=== PATIENT | female | born 1935 | race Caucasian/White ===

== ENCOUNTER → 2017-08-05 10:25 | Outpatient (CLI) | payer MEDICARE, OTHER, SELFPAY | PROVIDERS: Family Provider Family Medicine; PCP Family Medicine; Visit Provider Family Medicine | DX: M81.0 Age-related osteoporosis without current pathological fracture (principal); Z78.0 Asymptomatic menopausal state; Z82.62 Family history of osteoporosis; Z87.891 Personal history of nicotine dependence | CPT/HCPCS: 77080 ==

== ENCOUNTER → 2017-08-29 07:28 | Outpatient (CLI) | payer MEDICARE, OTHER, SELFPAY ==
[2017-08-29 08:16] LABS: Add Manual Diff / Slide Review NO; Basophils Percent Auto 0.7 % (0-2); Eosinophils Percent Auto 9.2 % (2-4); Hematocrit 37.7 % (36-46); Hemoglobin 12.7 g/dL (12.0-16.0); Lymphocytes Percent Auto 31.3 % (25-40); Mean Corpuscular HGB Conc 33.8 % (30-36); Mean Corpuscular Hemoglobin 31.6 PG (26-34); Mean Corpuscular Volume 93.7 fL (80-100); Monocytes Percent Auto 12.5 % (3-14); Neutrophils Absolute Auto 2200 /uL (3000-5900); Neutrophils Percent Auto 46.3 % (50-75); Platelet Count 210 X10^3/uL (150-400); Red Blood Cell Count 4.03 X10^6/uL (4.0-5.2); Red Cell Distribution Width 13.6 % (11.6-14.8); White Blood Cell Count 4.8 X10^3/uL (4.5-11.0)
[2017-08-29 08:57] LABS: Alanine Aminotransferase 26 IU/L (9-52); Albumin Globulin Ratio 0.7 (1.0-2.8); Alkaline Phosphatase 125 U/L (38-126); Aspartate Aminotransferase 25 IU/L (14-36); Bilirubin Total 0.6 mg/dL (0.2-1.3); Blood Urea Nitrogen 12 mg/dL (7-17); Carbon Dioxide 26 mmol/L (22-32); Chloride 107 mmol/L (98-107); Cholesterol 201 mg/dL (140-199); Estimated Glomerular Filt Rate > 60.0 mL/min (>60); Globulin 5.4 g/dL (1.7-4.1); Glucose 90 mg/dL (80-110); HDL Cholesterol 51 mg/dL (40-60); HEMOLYSIS < 15 (0-50); LDL Cholesterol Calculated 127 mg/dL (<100); Potassium 4.5 mmol/L (3.4-5.1); Sodium 141 mmol/L (137-145); Total Protein 9.4 g/dL (6.3-8.2); Triglycerides 117 mg/dL (35-150)
[2017-08-29 09:28] LABS: TSH w/ Reflex to FT4 1.17 uIU/mL (0.47-4.68)
== END ==
PROVIDERS: PCP Family Medicine; Visit Provider Family Medicine
DX: E78.5 Hyperlipidemia, unspecified (principal); E78.2 Mixed hyperlipidemia
CPT/HCPCS: 36415; 80053; 80061; 84443; 85025

== ENCOUNTER 2018-07-07 10:58 | Emergency (ER) | payer MEDICARE, SELFPAY ==
[2018-07-07 11:00] VITALS: BP 144/73; PULSE 62; RESP 18; TEMP 36.3; O2SAT 100
--- NOTE | 2018-07-07 11:16 | DI.CT.S_ITS ---
PROCEDURE: CT HEAD/BRAIN WO CON INDICATIONS: fall with head injury on coumadin TECHNIQUE: Noncontrast 4.5 mm thick angled axial sections acquired from the foramen magnum to the vertex, with coronal and sagittal reformats. For radiation dose reduction, the following was used: automated exposure control, adjustment of mA and/or kV according to patient size. COMPARISON: [facility], CT, HEAD WITHOUT CONTRAST, 12/05/2008, 17:57. FINDINGS: Image quality: Excellent. CSF spaces: Basal cisterns are patent. No extra-axial fluid collections. The ventricles are symmetric in size and shape. Brain: No intracranial bleeds or masses. There is cerebral volume loss for age, with resultant ventricular and sulcal prominence. There are periventricular and deep white matter chronic small vessel ischemic changes. There is intracranial internal carotid artery atherosclerosis. Skull and face: Calvarium and visualized facial bones appear intact, without suspicious lesions. Sinuses: Mild mucosal thickening within the bilateral maxillary sinuses. Visualized sinuses and mastoids are otherwise clear. IMPRESSION: No acute intracranial abnormality. Dictated by: Kristine Hayes M.D. on 07/07/2018 at 11:40 Approved by: Kristine Hayes M.D. on 07/07/2018 at 11:41
[2018-07-07 11:26] LABS: Hematocrit 37.4 % (36-46); Hemoglobin 12.2 g/dL (12.0-16.0)
[2018-07-07 11:31] LABS: INR 1.4 (0.9-1.3); Prothrombin Time 16.4 SECONDS (10.1-12.7)
--- NOTE | 2018-07-07 11:45 | PC.NURSE ---
large head laceration from falling into stone wall. will need sutures.
--- NOTE | 2018-07-07 11:51 | ED.HEATRA ---
HPI - Head Injury General Chief complaint: Trauma Stated complaint: SLIPPED AND FELL HIT HEAD Time Seen by Provider: 07/07/18 11:06 Source: patient and EMS Mode of arrival: EMS Limitations: no limitations History of Present Illness HPI Narrative: 82-year-old female nonsmoker presents with EMS for evaluation of a mechanical fall resulting in a head injury while on anticoagulation. The patient was activated as a modified trauma given anticoagulation and head injury. She has a large, deep irregular laceration on the right side of her head. She denies neck or back pain. She has full recall of the event and denies other injury other than superficial abrasions to left hand and right knee. MD Complaint: head injury Onset (ago): minute(s) Mechanism of Injury: fall Place: home Loss of Consciousness: no Location of injury: parietal Severity: mild Quality: burning Radiation: none Other Injuries: none Context: on warfarin Associated symptoms: denies other symptoms Related Data Home Medications Medication Instructions Recorded Confirmed multivitamin 1 tab PO DAILY #0 05/30/12 07/07/18 citalopram 20 mg PO QPM 07/07/18 07/07/18 warfarin 7.5 mg PO QPM 07/07/18 07/07/18 Previous Rx's Medication Instructions Recorded ipratropium bromide 0.03 % nasal 2 spray NASAL BID-TID PRN #30 ml 09/07/17 spray Allergies Allergy/AdvReac Type Severity Reaction Status Date / Time No Known Drug Allergies Allergy Verified 12/28/17 09:13 Review of Systems Constitutional Denies chills, Denies fever(s), Denies lethargy and Denies weakness Eyes Denies change in vision, Denies eye discharge, Denies irritation and Denies loss of vision ENT Ears, Nose, Mouth, and Throat: Denies change in voice, Denies neck pain and Denies sore throat Cardiovascular Denies chest pain, Denies irregular heart rhythm, Denies lightheadedness, Denies palpitations, Denies dyspnea, Denies dyspnea on exertion and Denies orthopnea Respiratory Denies cough, Denies dyspnea, Denies dyspnea on exertion and Denies wheezing Gastrointestinal Gastrointestinal: Denies abdominal pain, Denies change in bowel habits, Denies diarrhea, Denies nausea and Denies vomiting Genitourinary Denies hematuria, Denies flank pain, Denies urinary incontinence and Denies urinary urgency Musculoskeletal Denies neck pain Integumentary/Breasts Denies pruritus, Denies erythema, Denies rash and Reports wounds Neurologic Denies confusion, Denies loss of vision and Denies weakness Psychiatric Denies anxiety, Denies confusion, Denies depression, Denies homicidal ideation and Denies suicidal ideation Endocrine Denies palpitations Hematologic/Lymphatic Denies easy bruising Allergic/Immunologic Denies wheezing [facility] Medical History Acne (Chronic) Ankle pain (Chronic ~1999) Cervical spine disease (Chronic ~2012) Depression (Chronic ~1998) MGUS (monoclonal gammopathy of unknown significance) (Chronic) Osteoarthritis (Chronic ~1999) Osteoporosis (Chronic ~1998) Shoulder pain (Chronic ~1984) Chicken pox (Resolved) Measles (Resolved) Mumps (Resolved) Rubella (Resolved) Surgical History Anesthesia (Resolved) History of ankle surgery (Resolved ~2006) S/P total abdominal hysterectomy and bilateral salpingo-oophorectomy Status post rotator cuff repair (~2004) Family History Father Disorder of electrolytes Mother Mental health problem Grandfather Cancer Grandmother Diabetes mellitus Social History marital status: Smoking Status: Former smoker alcohol intake: current (1-2 A DAY ) substance use type: does not use Family History Father Disorder of electrolytes Mother Mental health problem Grandfather Cancer Grandmother Diabetes mellitus Social History marital status: Smoking Status: Former smoker alcohol intake: current (1-2 A DAY ) substance use type: does not use Exam Narrative Exam Narrative: GENERAL: 82-year-old female appears younger than stated age, alert and oriented, GCS 15 HEAD: 4 cm irregular laceration to the right parietal region with minimal active bleeding. No signs of depressed skull fracture EYES: Pupils equal round and reactive. Extraocular motions intact. No scleral icterus. No injection or drainage. ENT: Nose without bleeding, purulent drainage or septal hematoma. Throat without erythema, tonsillar hypertrophy or exudate. Uvula midline. Airway patent. NECK: Trachea midline. No JVD or lymphadenopathy. Supple, nontender, no meningeal signs. CARDIOVASCULAR: Regular rate and rhythm without murmurs, gallops, or rubs. RESPIRATORY: Clear to auscultation. Breath sounds equal bilaterally. No wheezes, rales, or rhonchi. GASTROINTESTINAL: Abdomen soft, non-tender, nondistended. No hepato-splenomegaly, or palpable masses. No guarding. EXTREMITIES: No clubbing, cyanosis, or edema. No joint tenderness, effusion, or edema noted. BACK: Nontender without deformity or crepitance. No flank tenderness. NEURO: AOx3. SKIN: No rash or erythema. Initial Vital Signs Initial Vital Signs: Vital Signs Temperature 97.4 F L 07/07/18 11:00 Pulse Rate 62 07/07/18 11:00 Respiratory Rate 18 07/07/18 11:00 Blood Pressure 144/73 H 07/07/18 11:00 Pulse Oximetry 100 07/07/18 11:00 Procedures Laceration Repair Laceration 1: Site: scalp Side (If applicable): right Size (cm): 4 Description: stellate Depth: involves muscle layer Local Anesthetic: lidocaine 1% and with epi Amount of anesthesia used (mL): 4 Pre-repair: wound explored and irrigated extensively Skin layer closed with: jewels Number of sutures: 8 Subcutaneous layer closed with: vicryl Size: 4-0 Number of sutures: 2 Technique: simple, interrupted Course Orders Ordered: ED Orders 07/07/18 11:14 Hemoglobin and Hematocrit Stat Prothrombin Time INR Stat 07/07/18 11:16 CT head/brain wo con Stat Vital Signs - 8 hr 07/07/18 13:00 Pulse Rate 77 Respiratory Rate 20 Blood Pressure 128/63 Pulse Oximetry 96 MDM - Head Injury Lab Data Result diagrams: 07/07/18 11:14 Lab Results 07/07/18 07/07/18 Range/Units 11:14 11:14 Hgb 12.2 (12.0-16.0) g/dL Hct 37.4 (36-46) % PT 16.4 H (10.1-12.7) SECONDS INR 1.4 H (0.9-1.3) Imaging Data CT scan - head: Radiologist's impression: Linda Benavides 82 F [address] [address] [address] Scan Report Signed Patient: Linda Benavides [facility]#: [id number] : [id number]:[id number] Age/Sex: 82 / FDate of Service: 07/07/18 Loc: ED Accession Number: [id number] Procedure: CT head/brain wo con Ordering Provider: Stanton Eden D.O. PROCEDURE: CT HEAD/BRAIN WO CON INDICATIONS: fall with head injury on coumadin TECHNIQUE: Noncontrast 4.5 mm thick angled axial sections acquired from the foramen magnum to the vertex, with coronal and sagittal reformats. For radiation dose reduction, the following was used: automated exposure control, adjustment of mA and/or kV according to patient size. COMPARISON: [facility], CT, HEAD WITHOUT CONTRAST, 12/05/2008, 17:57. FINDINGS: Image quality: Excellent. CSF spaces: Basal cisterns are patent. No extra-axial fluid collections. The ventricles are symmetric in size and shape. Brain: No intracranial bleeds or masses. There is cerebral volume loss for age, with resultant ventricular and sulcal prominence. There are periventricular and deep white matter chronic small vessel ischemic changes. There is intracranial internal carotid artery atherosclerosis. Skull and face: Calvarium and visualized facial bones appear intact, without suspicious lesions. Sinuses: Mild mucosal thickening within the bilateral maxillary sinuses. Visualized sinuses and mastoids are otherwise clear. IMPRESSION: No acute intracranial abnormality. Dictated by: Kristine Hayes M.D. on 07/07/2018 at 11:40 Approved by: Kristine Hayes M.D. on 07/07/2018 at 11:41 Discharge Plan Departure Patient Disposition: Home Clinical Impression: Laceration of scalp Qualifiers: Encounter type: initial encounter Qualified Code(s): S01.01XA - Laceration without foreign body of scalp, initial encounter Discharge Date/Time: 07/07/18 13:00 Interventions: ED Discharge Assessment Last Done: 07/07/18 13:00 Instructions: DI for Trauma Activity Restrictions/Additional Instructions: Please keep the wound clean and dry to the best of your ability. Please monitor for signs of infection such as redness to the skin or increasing pain. Have the sutures removed by your doctor in about 7 days. If you are unable to get into your doctor, we would be happy to remove the sutures in that same timeframe. Prescriptions: No Action multivitamin Tablet 1 tab PO DAILY Qty: 0 RF: 0 ipratropium bromide 0.03 % spray,non-aerosol 2 spray NASAL BID-TID PRN (Reason: allergy symptoms) Qty: 30 RF: 1 warfarin 5 mg tablet 7.5 mg PO QPM RF: 0 citalopram 20 mg tablet 20 mg PO QPM RF: 0 Referrals: Andre Maradiaga MD [Primary Care Provider] -
[2018-07-07 13:00] VITALS: BP 128/63; PULSE 77; RESP 20; O2SAT 96
--- NOTE | 2018-07-07 15:18 | PC.NURSE ---
pt's right knee cleansed. Bacitracin applied and kerlix applied. skin tear
--- NOTE | 2018-07-07 19:19 | ED_ITS ---
HPI - Head Injury General Chief complaint: Trauma Stated complaint: SLIPPED AND FELL HIT HEAD Time Seen by Provider: 07/07/18 11:06 Source: patient and EMS Mode of arrival: EMS Limitations: no limitations History of Present Illness HPI Narrative: 82-year-old female nonsmoker presents with EMS for evaluation of a mechanical fall resulting in a head injury while on anticoagulation. The patient was activated as a modified trauma given anticoagulation and head injury. She has a large, deep irregular laceration on the right side of her head. She denies neck or back pain. She has full recall of the event and den ies other injury other than superficial abrasions to left hand and right knee. MD Complaint: head injury Onset (ago): minute(s) Mechanism of Injury: fall Place: home Loss of Consciousness: no Location of injury: parietal Severity: mild Quality: burning Radiation: none Other Injuries: none Context: on warfarin Associated symptoms: denies other symptoms Related Data Home Medications Medication Instructions Recorded Confirmed multivitamin 1 tab PO DAILY #0 05/30/12 07/07/18 citalopram 20 mg PO QPM 07/07/18 07/07/18 warfarin 7.5 mg PO QPM 07/07/18 07/07/18 Previous Rx's Medication Instructions Recorded ipratropium bromide 0.03 % nasal 2 spray NASAL BID-TID PRN #30 ml 09/07/17 spray Allergies Allergy/AdvReac Type Severity Reaction Status Date / Time No Known Drug Allergies Allergy Verified 12/28/17 09:13 Review of Systems Constitutional Denies chills, Denies fever(s), Denies lethargy and Denies weakness Eyes Denies change in vision, Denies eye discharge, Denies irritation and Denies loss of vision ENT Ears, Nose, Mouth, and Throat: Denies change in voice, Denies neck pain and Denies sore throat Cardiovascular Denies chest pain, Denies irregular heart rhythm, Denies lightheadedness, Denies palpitations, Denies dyspnea, Denies dyspnea on exertion and Denies orthopnea Respiratory Denies cough, Denies dyspnea, Denies dyspnea on exertion and Denies wheezing Gastrointestinal Gastrointestinal: Denies abdominal pain, Denies change in bowel habits, Denies diarrhea, Denies nausea and Denies vomiting Genitourinary Denies hematuria, Denies flank pain, Denies urinary incontinence and Denies urinary urgency Musculoskeletal Denies neck pain Integumentary/Breasts Denies pruritus, Denies erythema, Denies rash and Reports wounds Neurologic Denies confusion, Denies loss of vision and Denies weakness Psychiatric Denies anxiety, Denies confusion, Denies depression, Denies homicidal ideation and Denies suicidal ideation Endocrine Denies palpitations Hematologic/Lymphatic Denies easy bruising Allergic/Immunologic Denies wheezing [facility] Medical History Acne (Chronic) Ankle pain (Chronic ~1999) Cervical spine disease (Chronic ~2012) Depression (Chronic ~1998) MGUS (monoclonal gammopathy of unknown significance) (Chronic) Osteoarthritis (Chronic ~1999) Osteoporosis (Chronic ~1998) Shoulder pain (Chronic ~1984) Chicken pox (Resolved) Measles (Resolved) Mumps (Resolved) Rubella (Resolved) Surgical History Anesthesia (Resolved) History of ankle surgery (Resolved ~2006) S/P total abdominal hysterectomy and bilateral salpingo-oophorectomy Status post rotator cuff repair (~2004) Family History Father Disorder of electrolytes Mother Mental health problem Grandfather Cancer Grandmother Diabetes mellitus Social History marital status: Smoking Status: Former smoker alcohol intake: current (1-2 A DAY ) substance use type: does not use Family History Father Disorder of electrolytes Mother Mental health problem Grandfather Cancer Grandmother Diabetes mellitus Social History marital status: Smoking Status: Former smoker alcohol intake: current (1-2 A DAY ) substance use type: does not use Exam Narrative Exam Narrative: GENERAL: 82-year-old female appears younger than stated age, alert and oriented, GCS 15 HEAD: 4 cm irregular laceration to the right parietal region with minimal active bleeding. No signs of depressed skull fracture EYES: Pupils equal round and reactive. Extraocular motions intact. No scleral icterus. No injection or drainage. ENT: Nose without bleeding, purulent drainage or septal hematoma. Throat without erythema, tonsillar hypertrophy or exudate. Uvula midline. Airway patent. NECK: Trachea midline. No JVD or lymphadenopathy. Supple, nontender, no meningeal signs. CARDIOVASCULAR: Regular rate and rhythm without murmurs, gallops, or rubs. RESPIRATORY: Clear to auscultation. Breath sounds equal bilaterally. No wheezes, rales, or rhonchi. GASTROINTESTINAL: Abdomen soft, non-tender, nondistended. No hepato- splenomegaly, or palpable masses. No guarding. EXTREMITIES: No clubbing, cyanosis, or edema. No joint tenderness, effusion, or edema noted. BACK: Nontender without deformity or crepitance. No flank tenderness. NEURO: AOx3. SKIN: No rash or erythema. Initial Vital Signs Initial Vital Signs: Vital Signs Temperature 97.4 F L 07/07/18 11:00 Pulse Rate 62 07/07/18 11:00 Respiratory Rate 18 07/07/18 11:00 Blood Pressure 144/73 H 07/07/18 11:00 Pulse Oximetry 100 07/07/18 11:00 Procedures Laceration Repair Laceration 1: Site: scalp Side (If applicable): right Size (cm): 4 Description: stellate Depth: involves muscle layer Local Anesthetic: lidocaine 1% and with epi Amount of anesthesia used (mL): 4 Pre-repair: wound explored and irrigated extensively Skin layer closed with: jewels Number of sutures: 8 Subcutaneous layer closed with: vicryl Size: 4-0 Number of sutures: 2 Technique: simple, interrupted Course Orders Ordered: ED Orders 07/07/18 11:14 Hemoglobin and Hematocrit Stat Prothrombin Time INR Stat 07/07/18 11:16 CT head/brain wo con Stat Vital Signs - 8 hr 07/07/18 13:00 Pulse Rate 77 Respiratory Rate 20 Blood Pressure 128/63 Pulse Oximetry 96 MDM - Head Injury Lab Data Result diagrams: 07/07/18 11:14 Lab Results 07/07/18 07/07/18 Range/Units 11:14 11:14 Hgb 12.2 (12.0-16.0) g/dL Hct 37.4 (36-46) % PT 16.4 H (10.1-12.7) SECONDS INR 1.4 H (0.9-1.3) Imaging Data CT scan - head: Radiologist's impression: Linda Benavides 82 F [address] [address] [address] Scan Report Signed Patient: Linda Benavides [facility]#: [id number] : 1935cct:[id number] Age/Sex: 82 / FDate of Service: 07/07/18 Loc: ED Accession Number: [id number] Procedure: CT head/brain wo con Ordering Provider: Stanton Eden D.O. PROCEDURE: CT HEAD/BRAIN WO CON INDICATIONS: fall with head injury on coumadin TECHNIQUE: Noncontrast 4.5 mm thick angled axial sections acquired from the foramen magnum to the vertex, with coronal and sagittal reformats. For radiation dose reduction, the following was used: automated exposure control, adjustment of mA and/or kV according to patient size. COMPARISON: [facility], CT, HEAD WITHOUT CONTRAST, 12/05/2008, 17:57. FINDINGS: Image quality: Excellent. CSF spaces: Basal cisterns are patent. No extra-axial fluid collections. The ventricles are symmetric in size and shape. Brain: No intracranial bleeds or masses. There is cerebral volume loss for age, with resultant ventricular and sulcal prominence. There are periventricular and deep white matter chronic small vessel ischemic changes. There is intracranial internal carotid artery atherosclerosis. Skull and face: Calvarium and visualized facial bones appear intact, without suspicious lesions. Sinuses: Mild mucosal thickening within the bilateral maxillary sinuses. Visualized sinuses and mastoids are otherwise clear. IMPRESSION: No acute intracranial abnormality. Dictated by: Kristine Hayes M.D. on 07/07/2018 at 11:40 Approved by: Kristine Hayes M.D. on 07/07/2018 at 11:41 Discharge Plan Departure Patient Disposition: Home Clinical Impression: Laceration of scalp Qualifiers: Encounter type: initial encounter Qualified Code(s): S01.01XA - Laceration without foreign body of scalp, initial encounter Discharge Date/Time: 07/07/18 13:00 Interventions: ED Discharge Assessment Last Done: 07/07/18 13:00 Instructions: DI for Trauma Activity Restrictions/Additional Instructions: Please keep the wound clean and dry to the best of your ability. Please monitor for signs of infection such as redness to the skin or increasing pain. Have the sutures removed by your doctor in about 7 days. If you are unable to get into your doctor, we would be happy to remove the sutures in that same timeframe. Prescriptions: No Action multivitamin Tablet 1 tab PO DAILY Qty: 0 RF: 0 ipratropium bromide 0.03 % spray,non-aerosol 2 spray NASAL BID-TID PRN (Reason: allergy symptoms) Qty: 30 RF: 1 warfarin 5 mg tablet 7.5 mg PO QPM RF: 0 citalopram 20 mg tablet 20 mg PO QPM RF: 0 Referrals: Andre Maradiaga MD [Primary Care Provider] -
== END 2018-07-07 13:00 | disposition home or self-care (01) ==
PROVIDERS: Emergency Provider Emergency Medicine; Family Provider Family Medicine; PCP Family Medicine
DX: S01.01XA Laceration without foreign body of scalp, initial encounter (principal); W19.XXXA Unspecified fall, initial encounter; Z79.01 Long term (current) use of anticoagulants
CPT/HCPCS: 12032; 36415; 70450; 85014; 85018; 85610; 99283; 99284

== ENCOUNTER → 2018-08-01 07:53 | Outpatient (CLI) | payer MEDICARE, SELFPAY ==
[2018-08-01 08:53] LABS: Add Manual Diff / Slide Review NO; Basophils Absolute Auto 0 /uL (0-100); Basophils Percent Auto 0.7 % (0-2); Eosinophils Absolute Auto 300 /uL (0-450); Eosinophils Percent Auto 6.9 % (2-4); Hematocrit 37.2 % (36-46); Hemoglobin 12.5 g/dL (12.0-16.0); Lymphocytes Absolute Auto 1000 /uL (1100-4500); Lymphocytes Percent Auto 24.3 % (25-40); Mean Corpuscular HGB Conc 33.7 % (30-36); Mean Corpuscular Hemoglobin 31.9 PG (26-34); Mean Corpuscular Volume 94.6 fL (80-100); Monocytes Absolute Auto 400 /uL (0-900); Monocytes Percent Auto 11.2 % (3-14); Neutrophils Absolute Auto 2300 /uL (1500-7000); Neutrophils Percent Auto 56.9 % (50-75); Platelet Count 223 X10^3/uL (150-400); Red Blood Cell Count 3.93 X10^6/uL (4.0-5.2); Red Cell Distribution Width 13.7 % (11.6-14.8)
[2018-08-01 09:07] LABS: Cholesterol 190 mg/dL (140-199); HDL Cholesterol 48 mg/dL (40-60); LDL Cholesterol Calculated 121 mg/dL (<100); Triglycerides 105 mg/dL (35-150)
[2018-08-01 09:09] LABS: Erythrocyte Sedimentation Rate 30 MM/HR (0-20)
[2018-08-01 09:35] LABS: Thyroid Stimulating Hormone 1.09 uIU/mL (0.47-4.68)
[2018-08-02 13:53] LABS: Beta-2-Microglobulin 3.54 mg/L (< 2.52)
[2018-08-03 17:19] LABS: Immunoglobulin A 130 mg/dL (81-463); Immunoglobulin G, Quantitative 3998 mg/dL (694-1618); Immunoglobulin M, Quantitative 73 mg/dL (48-271)
[2018-08-04 15:17] LABS: Abnormal Protein Band 1 1.5 g/dL (NONE DETECTED); Albumin 3.6 g/dL (3.8-4.8); Alpha 1 Globulin 0.2 g/dL (0.2-0.3); Alpha 2 Globulin 0.7 g/dL (0.5-0.9); Beta 1 Globulin 0.3 g/dL (0.4-0.6); Gamma Globulin 3.4 g/dL (0.8-1.7); Protein, Total 8.5 g/dL (6.1-8.1)
[2018-08-04 16:02] LABS: Free Kappa Light Chain 51.2 mg/L (3.3-19.4); Free Kappa/ Lambda Ratio 0.45 (0.26-1.65); Free Lambda 112.6 mg/L (5.7-26.3)
== END ==
PROVIDERS: PCP Family Medicine; Visit Provider Internal Medicine Hematology & Oncology
DX: D47.2 Monoclonal gammopathy (principal); I10 Essential (primary) hypertension; I82.402 Acute embolism and thrombosis of unspecified deep veins of left lower extremity; M48.02 Spinal stenosis, cervical region; I82.90 Acute embolism and thrombosis of unspecified vein
CPT/HCPCS: 36415; 80061; 82232; 82784; 83883; 84155; 84165; 84443; 85025; 85651; 86334

== ENCOUNTER → 2018-11-17 10:53 | Outpatient (CLI) | payer MEDICARE, SELFPAY ==
[2018-11-17 11:43] LABS: Add Manual Diff / Slide Review NO; Basophils Absolute Auto 0 /uL (0-100); Basophils Percent Auto 0.9 % (0-2); Eosinophils Absolute Auto 200 /uL (0-450); Hematocrit 36.8 % (36-46); Hemoglobin 12.7 g/dL (12.0-16.0); Lymphocytes Absolute Auto 700 /uL (1100-4500); Lymphocytes Percent Auto 19.8 % (25-40); Mean Corpuscular HGB Conc 34.5 % (30-36); Mean Corpuscular Hemoglobin 32.4 PG (26-34); Mean Corpuscular Volume 94.1 fL (80-100); Monocytes Absolute Auto 400 /uL (0-900); Monocytes Percent Auto 10.1 % (3-14); Neutrophils Absolute Auto 2400 /uL (1500-7000); Neutrophils Percent Auto 64.2 % (50-75); Platelet Count 225 X10^3/uL (150-400); Red Blood Cell Count 3.91 X10^6/uL (4.0-5.2); Red Cell Distribution Width 13.7 % (11.6-14.8); White Blood Cell Count 3.7 X10^3/uL (4.5-11.0)
[2018-11-17 12:02] LABS: Alanine Aminotransferase 12 IU/L (9-52); Albumin 3.8 g/dL (3.5-5.0); Albumin Globulin Ratio 0.7 (1.0-2.8); Alkaline Phosphatase 106 U/L (38-126); Aspartate Aminotransferase 28 IU/L (14-36); BUN Creatinine Ratio 18.6 (6-22); Bilirubin Total 0.5 mg/dL (0.2-1.3); Blood Urea Nitrogen 13 mg/dL (7-17); Calcium 9.1 mg/dL (8.4-10.2); Carbon Dioxide 26 mmol/L (22-32); Chloride 106 mmol/L (98-107); Estimated Glomerular Filt Rate > 60.0 mL/min (>60); Globulin 5.2 g/dL (1.7-4.1); Glucose 94 mg/dL (80-110); HEMOLYSIS < 15 (0-50); Lactate Dehydrogenase 330 U/L (313-618); Potassium 4.2 mmol/L (3.4-5.1); Sodium 139 mmol/L (137-145)
[2018-11-21 14:02] LABS: Free Kappa Light Chain 52.5 mg/L (3.3-19.4); Free Kappa/ Lambda Ratio 0.38 (0.26-1.65); Free Lambda 136.7 mg/L (5.7-26.3)
[2018-11-21 14:23] LABS: Immunoglobulin A 124 mg/dL (20-320); Immunoglobulin G, Quantitative 3805 mg/dL (600-1540); Immunoglobulin M, Quantitative 73 mg/dL (50-300)
[2018-11-22 09:48] LABS: Beta-2-Microglobulin 3.49 mg/L (< 2.52)
[2018-11-23 21:01] LABS: Abnormal Protein Band 1 1.7 g/dL (NONE DETECTED); Abnormal Protein Band 2 0.8 g/dL (NONE DETECTED); Albumin 3.8 g/dL (3.8-4.8); Alpha 1 Globulin 0.3 g/dL (0.2-0.3); Alpha 2 Globulin 0.6 g/dL (0.5-0.9); Beta 1 Globulin 0.4 g/dL (0.4-0.6); Gamma Globulin 3.4 g/dL (0.8-1.7); Protein, Total 8.7 g/dL (6.1-8.1)
== END ==
PROVIDERS: Internal Medicine Hematology & Oncology; PCP Family Medicine; Visit Provider Family Medicine
DX: D47.2 Monoclonal gammopathy (principal)
CPT/HCPCS: 36415; 80053; 82232; 82784; 83615; 83883; 84155; 84165; 85025; 86334

== ENCOUNTER → 2019-01-30 15:14 | Outpatient (CLI) | payer MEDICARE, SELFPAY ==
--- NOTE | 2019-01-30 15:17 | DI.RAD.S_ITS ---
PROCEDURE: XR LUMBAR SPINE MIN 4V INDICATIONS: lbp TECHNIQUE: 5 views of the lumbar spine were acquired. COMPARISON: [facility], , L-SPINE 2-3 VIEWS, 11/03/2011, 11:01. FINDINGS: Bones: 5 nonrib-bearing vertebrae are present. Diffuse osteopenia. No acute vertebral body compression fractures. No suspicious bony lesions. Progression of moderate multilevel lumbar spondylosis and facet arthropathy most pronounced at L1-2 and L4-5. There is also mild interval progression of grade 1 anterolisthesis of L4 on L5. No pars defect identified at this level. This is likely related to progression of spondylitic changes. Soft tissues: Overlying bowel gas pattern is normal. No suspicious soft tissue calcifications. Dense atherosclerotic calcifications are present. Oblique images: No pars defects. IMPRESSION: Interval progression in moderate multilevel lumbar spondylosis most pronounced at L1-2 and L4-5 with increased grade 1 anterolisthesis of L4 on L5. This is favored to be secondary to progression of spondylosis. No pars defects noted on the oblique views at this level. Dictated by: Daniel Davila M.D. on 01/30/2019 at 17:31 Approved by: Daniel Davila M.D. on 01/30/2019 at 17:34
== END ==
PROVIDERS: PCP Family Medicine; Visit Provider Family Medicine
DX: M54.5 Low back pain (principal); M47.816 Spondylosis without myelopathy or radiculopathy, lumbar region; M43.16 Spondylolisthesis, lumbar region
CPT/HCPCS: 72110

== ENCOUNTER 2019-02-08 13:30 | Outpatient (RCR) | payer MEDICARE, SELFPAY ==
--- NOTE | 2019-02-02 13:23 | PT.OIE ---
Current Diagnoses Spinal stenosis, cervical region (02/02/19) Low back pain (02/02/19) Age-related osteoporosis without current pathological fracture (02/02/19) Past Medical History (Last Reviewed 07/07/18 @ 19:17 by Stanton Eden DO) Acne (Chronic) Ankle pain (Chronic ~1999) Cervical spine disease (Chronic ~2012) Chicken pox (Resolved) Depression (Chronic ~1998) Measles (Resolved) MGUS (monoclonal gammopathy of unknown significance) (Chronic) Mumps (Resolved) Osteoarthritis (Chronic ~1999) Osteoporosis (Chronic ~1998) Rubella (Resolved) Shoulder pain (Chronic ~1984) Past Surgical History (Last Reviewed 07/07/18 @ 19:17 by Stanton Eden DO) Anesthesia (Resolved) History of ankle surgery (Resolved ~2006) S/P total abdominal hysterectomy and bilateral salpingo-oophorectomy Status post rotator cuff repair (~2004) Visit Care Team Role Provider Type Andre Maradiaga MD Attending Provider Physician Primary Care Provider Specialty: [facility] Address: [address] [place] [address] Email: [email or web address] Physical Therapy Initial Evaluation PT-OP-A Visit Information Start: 02/02/19 08:11 Freq: Status: Active Protocol: Document 02/02/19 11:22 LRN (Rec: 02/02/19 13:19 LRN [id number]) Out-Patient Physical Therapy Visit Information Visit Information Visit Type Initial Evaluation Visit Start Time 11:22 Visit Stop Time 12:25 Total Visit Minutes 63 Visit Number 1 Number of OPERATIONS EXAMINER Visits 0 Evaluation Information Evaluation Date 02/02/19 Precautions Precautions Osteoporosis Hx of Blood Clots, Bruises easily, R reverse shoulder replacement , L RCT repair. PT-OP-B Current Condition Start: 02/02/19 08:11 Freq: Status: Active Protocol: Document 02/02/19 11:22 LRN (Rec: 02/02/19 13:19 LRN [id number]) Current Condition History of Current Condition Onset Date After Thanksgivin week ago Current Complaints Chronic back pain across the low back at level of SIJ's. History of Current Condition States one lumbar vertebra is tipped causing pressure on a nerve and thinks that may be a reason for her LBP. Yesterday received a cortisone injection by Dr. Maradiaga. Hasn 't noticed a difference at the time of the PT appointment. 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 She states surgery is NOT an option. She does one exercise which is walking. Her back pain is better now. Her pain varies throughout the day. She takes Tylenol 6 daily. During history taking pt requested lying down because she reports being dizzy, once lying down she reported she wasn't dizzy, just tired. Prior Treatments and Tests Cortisone injection in low back yesterday. Thinks she has had PT for either her back or hips. Future Testing and Treatments Planned None Treatment Goals Patient/Caregiver Goals Pt goal is to see if she can learn new exercise to help the pain, not eliminate. Just wants a home program. Prior Functional Status Baseline Function- ADL's Independent Baseline Function- Mobility Independent Baseline Function- Gait Walks daily 1 mile, 2x/day. Baseline Function- Recreation/Hobbies Gardening Current Functional Impairments (Reported) Functional Limitations- ADL's Can't garden and houseclean due to back pain and fatigue. Functional Limitations- Mobility/Gait Walking 1/2 mile, 2x/day unless the weather is bad. Personal Factors Other Personal Factors That May Effect Lives by herself. Therapy/Recovery PT-OP-C Subjective Start: 02/02/19 08:11 Freq: Status: Active Protocol: Document 02/02/19 11:22 LRN (Rec: 02/02/19 13:19 LRN [id number]) OP-PT Pain Assessment Location Low back Description Aching Frequency Constant Pain Duration Changes in intensity. Pain Aggravating Factors ADL's,Standing,Bending,Lifting Pain Alleviating Factors Heat Other Pain Alleviating Factors Lying on side. PT-OP-H Neuro Start: 02/02/19 08:11 Freq: Status: Active Protocol: Document 02/02/19 11:22 LRN (Rec: 02/02/19 13:19 LRN [id number]) Sensation Evaluation Location Details Lower Extremity Light Touch Intact/Normal Deep Tendon Reflex & Clonus Assessment Deep Tendon Reflex Bilateral Achilles Deep Tendon Reflex 0 Absent Bilateral Patellar Deep Tendon Reflex 1+ Diminished PT-OP-J Posture/Palpation/Skin Start: 02/02/19 08:11 Freq: Status: Active Protocol: Document 02/02/19 11:22 LRN (Rec: 02/02/19 13:19 LRN [id number]) Posture Evaluation Position Standing Evaluation View All positions L-Spine Posture Flattened Shoulder Posture (L) Rounded,(R) Rounded Pelvis Posture Posterior Tilted Weight Distribution Balanced Palpation Assessment Location Low Back Palpation Location Across low back at level of sacrum. Palpation Findings Tenderness PT-OP-K Range of Motion Start: 02/02/19 08:11 Freq: Status: Active Protocol: Document 02/02/19 11:22 LRN (Rec: 02/02/19 13:19 LRN [id number]) Lumbar Spine Range of Motion Lumbar Spine Active Degrees Testing Position Standing Flexion 98 Extension 15 Lateral Flexion Left 10 Lateral Flexion Right 7 PT-OP-M Strength Start: 02/02/19 08:11 Freq: Status: Active Protocol: Document 02/02/19 11:22 LRN (Rec: 02/02/19 13:19 LRN [id number]) Hip Strength Hip Manual Muscle Testing Right Flexion (L2) 5 Normal Extension (S1) 5 Normal Abduction 5 Normal Adduction 3- Fair- Comments Pain in LB with MMT Left Flexion (L2) 5 Normal Extension (S1) 5 Normal Abduction 5 Normal Adduction 3- Fair- Comments Pain in LB with MMT Knee Strength Knee Manual Muscle Testing Right Reason Not Measured WFL Left Reason Not Measured WFL Ankle/Foot Strength Ankle and Foot Manual Muscle Testing Right Reason Not Measured WFL Left Reason Not Measured WFL PT-OP-Q Treatments Start: 02/02/19 08:11 Freq: Status: Active Protocol: Document 02/02/19 11:22 LRN (Rec: 02/02/19 13:19 LRN [id number]) Therapeutic Exercises Supine Exercises Sacral Flex/Lumbar Ext Supine Exercise Name Sacral Flex/Lumbar Ext Reps/Minutes 2' Comments Training Sidelying Exercises Hip AB Sidelying Exercise Name Hip AB Side bilateral Reps/Minutes 2x Clamshell Sidelying Exercise Name Clamshell Side bilateral Self-Care/Home Management Treatment Education Patient Education Home Exercise Program Activities Self-Care/Home Management Activities Issued & reviewed HEP: Hip AB , Clamshell & Sacral flex ex. PT-OP-T Assessment and Plan Start: 02/02/19 08:11 Freq: Status: Active Protocol: Document 12/06/19 11:22 LRN (Rec: 02/02/19 13:19 LRN [id number]) Physical Therapy Assessment Rehab Potential Rehabilitation Potential Good Evaluation Complexity Number of Personal Factors/Comorbidities 1-2 Number of Body Systems Impaired 4 or More Clinical Presentation at Evaluation Stable Impairments Impairments Activity Tolerance,Pain, Posture,ROM Goals Three Impairment Poor posturing in low back Diesel Powerplant Supervisor Goal (LTG) Pt will demonstrate knowledge of proper low back positioning by adjusting as tolerated into sacral flex & lumbar ext. LTG Duration 05/03/19 Two Impairment Lacks appropriate body mechanics Short Term Goal (STG) Pt will be educated in proper body mechanics for transfers, lifting, house cleaning, etc.. . STG Duration 02/09/19 One Impairment Lacks appropriate HEP Custodial Goal (LTG) Pt will be independent with a self care HEP. LTG Duration 05/03/19 Assessment Summary Assessment Pt presents with chronic low back pain s/p cortisone injection yesterday. Today she did not demonstrate increased back pain with ROM and strength testing and may have been under the influence of the cortisone injection. She has tightness of her lumbar paraspinal region and weakness of her L gluteal muscles. She is interested in being placed on a HEP to prevent worsening of her condition. The pt will benefit from skilled physical therapy for body mechanics education and education in a self care program that will start with initial gentle exercises and once the effect of the cortisone injection has , more appropriate exercises to her condition. The pt will need a couple of weeks for her body to stabilize before finalizing her HEP. Physical Therapy Plan Frequency and Duration Frequency of Treatment 2x/Week Plan of Care Start Date 02/02/19 Plan of Care End Date 05/03/19 Therapeutic Interventions Therapeutic Interventions Balance Training,Gait Training ,Home Exercise Program,Manual Therapy,Neuromuscular Re- education,Patient/Caregiver Education,Self-Care/Home Management,Therapeutic Activities,Therapeutic Exercises Modalities Cold Pack/Ice Massage,Hot Packs Next Visit Focus/Plan Next Note Type Treatment Note Next Visit Plan Body mechanics training for pt to follow while she adjusts to effects of her recent cortisone injection, f/b pt education in a HEP for core stabilization. Check hip mobility and address ROM limitations as needed. HEP for sacral flex ex & QL strengthening.
--- NOTE | 2019-02-05 14:32 | PT.OTN ---
Current Diagnoses Spinal stenosis, cervical region (02/05/19) Low back pain (02/05/19) Age-related osteoporosis without current pathological fracture (02/05/19) Physical Therapy Treatment Note PT-OP-A Visit Information Start: 02/02/19 08:11 Freq: Status: Active Protocol: Document 02/05/19 13:32 LRN (Rec: 02/05/19 14:32 LRN [id number]) Out-Patient Physical Therapy Visit Information Visit Information Visit Type Treatment Note Visit Start Time 13:32 Visit Stop Time 14:17 Total Visit Minutes 45 Visit Number 2 Number of AIRPLANE FUELER Visits 0 Evaluation Information Evaluation Date 02/02/19 Precautions Precautions Osteoporosis Hx of Blood Clots, Bruises easily, R reverse shoulder replacement , L RCT repair. PT-OP-B Current Condition Start: 02/02/19 08:11 Freq: Status: Active Protocol: Document 02/02/19 11:22 LRN (Rec: 02/02/19 13:19 LRN [id number]) Current Condition History of Current Condition Onset Date After : 1 week ago Current Complaints Chronic back pain across the low back at level of SIJ's. History of Current Condition States one lumbar vertebra is tipped causing pressure on a nerve and thinks that may be a reason for her LBP. Yesterday received a cortisone injection by Dr. Maradiaga. Hasn 't noticed a difference at the time of the PT appointment. 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 She states surgery is NOT an option. She does one exercise which is walking. Her back pain is better now. Her pain varies throughout the day. She takes Tylenol 6 daily. During history taking pt requested lying down because she reports being dizzy, once lying down she reported she wasn't dizzy, just tired. Prior Treatments and Tests Cortisone injection in low back yesterday. Thinks she has had PT for either her back or hips. Future Testing and Treatments Planned None Treatment Goals Patient/Caregiver Goals Pt goal is to see if she can learn new exercise to help the pain, not eliminate. Just wants a home program. Prior Functional Status Baseline Function- ADL's Independent Baseline Function- Mobility Independent Baseline Function- Gait Walks daily 1 mile, 2x/day. Baseline Function- Recreation/Hobbies Gardening Current Functional Impairments (Reported) Functional Limitations- ADL's Can't garden and houseclean due to back pain and fatigue. Functional Limitations- Mobility/Gait Walking 1/2 mile, 2x/day unless the weather is bad. Personal Factors Other Personal Factors That May Effect Lives by herself. Therapy/Recovery PT-OP-C Subjective Start: 02/02/19 08:11 Freq: Status: Active Protocol: Document 02/05/19 13:32 LRN (Rec: 02/05/19 14:32 LRN [id number]) OP-PT Subjective Patient Comments Patient Comments Wants ex's to help her back. PT-OP-H Neuro Start: 02/02/19 08:11 Freq: Status: Active Protocol: Document 02/02/19 11:22 LRN (Rec: 02/02/19 13:19 LRN [id number]) Sensation Evaluation Location Details Lower Extremity Light Touch Intact/Normal Deep Tendon Reflex & Clonus Assessment Deep Tendon Reflex Bilateral Achilles Deep Tendon Reflex 0 Absent Bilateral Patellar Deep Tendon Reflex 1+ Diminished PT-OP-J Posture/Palpation/Skin Start: 02/02/19 08:11 Freq: Status: Active Protocol: Document 02/02/19 11:22 LRN (Rec: 02/02/19 13:19 LRN [id number]) Posture Evaluation Position Standing Evaluation View All positions L-Spine Posture Flattened Shoulder Posture (L) Rounded,(R) Rounded Pelvis Posture Posterior Tilted Weight Distribution Balanced Palpation Assessment Location Low Back Palpation Location Across low back at level of sacrum. Palpation Findings Tenderness PT-OP-K Range of Motion Start: 02/02/19 08:11 Freq: Status: Active Protocol: Document 02/02/19 11:22 LRN (Rec: 02/02/19 13:19 LRN [id number]) Lumbar Spine Range of Motion Lumbar Spine Active Degrees Testing Position Standing Flexion 98 Extension 15 Lateral Flexion Left 10 Lateral Flexion Right 7 PT-OP-M Strength Start: 02/02/19 08:11 Freq: Status: Active Protocol: Document 02/02/19 11:22 LRN (Rec: 02/02/19 13:19 LRN [id number]) Hip Strength Hip Manual Muscle Testing Right Flexion (L2) 5 Normal Extension (S1) 5 Normal Abduction 5 Normal Adduction 3- Fair- Comments Pain in LB with MMT Left Flexion (L2) 5 Normal Extension (S1) 5 Normal Abduction 5 Normal Adduction 3- Fair- Comments Pain in LB with MMT Knee Strength Knee Manual Muscle Testing Right Reason Not Measured WFL Left Reason Not Measured WFL Ankle/Foot Strength Ankle and Foot Manual Muscle Testing Right Reason Not Measured WFL Left Reason Not Measured WFL PT-OP-Q Treatments Start: 02/02/19 08:11 Freq: Status: Active Protocol: Document 02/05/19 13:32 LRN (Rec: 02/05/19 14:32 LRN [id number]) Therapeutic Exercises Supine Exercises TA bracing Supine Exercise Name TA Bracing Reps/Minutes 10' Comments Training with Shhh, Mccullough, and Cough Sacral Flex/Lumbar Ext Supine Exercise Name Sacral Flex/Lumbar Ext Reps/Minutes 2' Comments Training Prone Exercises Hip Ext Prone Exercise Name Hip Ext Side bilateral Reps/Minutes 10x Sidelying Exercises Hip AB Sidelying Exercise Name Hip AB Side bilateral Reps/Minutes 10x Comments Extra time taken for training Clamshell Sidelying Exercise Name Clamshell Side bilateral Reps/Minutes 10x Comments Extra time taken for training Therapeutic Activity Therapeutic Activity Sit <-> Stand Name Sit <-> Stand training, pivoting at hips Reps/Minutes 5' Supine <-> Sit Name Supine <-> Sit training Reps/Minutes 4' Self-Care/Home Management Treatment Education Patient Education Body Mechanics,Home Exercise Program Other Education Educated pt in proper transfers, bending, reaching. Activities Self-Care/Home Management Activities Issued & Reviewed HEP: Pelvic Brace (TA) and Neutral Positioin Progression ex's. PT-OP-T Assessment and Plan Start: 02/02/19 08:11 Freq: Status: Active Protocol: Document 02/05/19 13:32 LRN (Rec: 02/05/19 14:32 LRN [id number]) Physical Therapy Assessment Goals Three Impairment Poor posturing in low back Surgical Endoscopist Goal (LTG) Pt will demonstrate knowledge of proper low back positioning by adjusting as tolerated into sacral flex & lumbar ext. LTG Duration 05/03/19 (02/05/19: Progressing) Two Impairment Lacks appropriate body mechanics Short Term Goal (STG) Pt will be educated in proper body mechanics for transfers, lifting, house cleaning, etc.. . STG Duration 02/09/19 (02/05/19: GOAL MET) One Impairment Lacks appropriate HEP Jail Goal (LTG) Pt will be independent with a self care HEP. LTG Duration 05/03/19 (02/05/19: Progressing) Assessment Summary Assessment Pt is able to control core neutral positioning easier with LLE movements. She appears to have a fair understanding of neutral spine positioning, although pt is not sure she understands with regards to transfer training; therefore further review of neutral spine is needed. Physical Therapy Plan Frequency and Duration Frequency of Treatment 2x/Week Plan of Care Start Date 02/02/19 Plan of Care End Date 05/03/19 Next Visit Focus/Plan Next Note Type Treatment Note Next Visit Plan Pt has 4 more visits for placement on HEP. Check hip mobility and address ROM limitations as needed. HEP for sacral flex ex & QL strengthening. Review & education in neutral spine positioning and review of HEP for core stabilization progression.
--- NOTE | 2019-02-08 14:17 | PT.OTN ---
Current Diagnoses Spinal stenosis, cervical region (02/08/19) Low back pain (02/08/19) Age-related osteoporosis without current pathological fracture (02/08/19) Physical Therapy Treatment Note PT-OP-A Visit Information Start: 02/02/19 08:11 Freq: Status: Active Protocol: Document 02/08/19 13:32 LRN (Rec: 02/08/19 14:20 LRN [id number]) Out-Patient Physical Therapy Visit Information Visit Information Visit Type Treatment Note Visit Start Time 13:32 Visit Stop Time 14:14 Total Visit Minutes 42 Visit Number 3 Number of COMPANY DANCER Visits 0 Evaluation Information Evaluation Date 02/02/19 Precautions Precautions Osteoporosis Hx of Blood Clots, Bruises easily, R reverse shoulder replacement , L RCT repair. PT-OP-B Current Condition Start: 02/02/19 08:11 Freq: Status: Active Protocol: Document 02/02/19 11:22 LRN (Rec: 02/02/19 13:19 LRN [id number]) Current Condition History of Current Condition Onset Date After : 1 week ago Current Complaints Chronic back pain across the low back at level of SIJ's. History of Current Condition States one lumbar vertebra is tipped causing pressure on a nerve and thinks that may be a reason for her LBP. Yesterday received a cortisone injection by Dr. Maradiaga. Hasn 't noticed a difference at the time of the PT appointment. 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 She states surgery is NOT an option. She does one exercise which is walking. Her back pain is better now. Her pain varies throughout the day. She takes Tylenol 6 daily. During history taking pt requested lying down because she reports being dizzy, once lying down she reported she wasn't dizzy, just tired. Prior Treatments and Tests Cortisone injection in low back yesterday. Thinks she has had PT for either her back or hips. Future Testing and Treatments Planned None Treatment Goals Patient/Caregiver Goals Pt goal is to see if she can learn new exercise to help the pain, not eliminate. Just wants a home program. Prior Functional Status Baseline Function- ADL's Independent Baseline Function- Mobility Independent Baseline Function- Gait Walks daily 1 mile, 2x/day. Baseline Function- Recreation/Hobbies Gardening Current Functional Impairments (Reported) Functional Limitations- ADL's Can't garden and houseclean due to back pain and fatigue. Functional Limitations- Mobility/Gait Walking 1/2 mile, 2x/day unless the weather is bad. Personal Factors Other Personal Factors That May Effect Lives by herself. Therapy/Recovery PT-OP-C Subjective Start: 02/02/19 08:11 Freq: Status: Active Protocol: Document 02/08/19 13:32 LRN (Rec: 02/08/19 14:20 LRN [id number]) OP-PT Subjective Patient Comments Patient Comments Back to normal pain level. Only has problem is getting up /down to do things for her dogs. Patient Questionnaires Oswestry Low Back Index Oswestry Score 19 Oswestry Impairment 1 to 19% Impaired (Score 1-19) PT-OP-H Neuro Start: 02/02/19 08:11 Freq: Status: Active Protocol: Document 02/02/19 11:22 LRN (Rec: 02/02/19 13:19 LRN [id number]) Sensation Evaluation Location Details Lower Extremity Light Touch Intact/Normal Deep Tendon Reflex & Clonus Assessment Deep Tendon Reflex Bilateral Achilles Deep Tendon Reflex 0 Absent Bilateral Patellar Deep Tendon Reflex 1+ Diminished PT-OP-J Posture/Palpation/Skin Start: 02/02/19 08:11 Freq: Status: Active Protocol: Document 02/02/19 11:22 LRN (Rec: 02/02/19 13:19 LRN [id number]) Posture Evaluation Position Standing Evaluation View All positions L-Spine Posture Flattened Shoulder Posture (L) Rounded,(R) Rounded Pelvis Posture Posterior Tilted Weight Distribution Balanced Palpation Assessment Location Low Back Palpation Location Across low back at level of sacrum. Palpation Findings Tenderness PT-OP-K Range of Motion Start: 02/02/19 08:11 Freq: Status: Active Protocol: Document 02/08/19 13:32 LRN (Rec: 02/09/19 09:10 LRN [id number]) Hip Goniometric Range of Motion Hip Right Passive Testing Position Supine Straight Leg Raise 95 Abduction 25 Internal Rotation 45 External Rotation 50 Left Passive Testing Position Supine Straight Leg Raise 95 Abduction 20 Internal Rotation 45 External Rotation 70 PT-OP-M Strength Start: 02/02/19 08:11 Freq: Status: Active Protocol: Document 02/02/19 11:22 LRN (Rec: 02/02/19 13:19 LRN [id number]) Hip Strength Hip Manual Muscle Testing Right Flexion (L2) 5 Normal Extension (S1) 5 Normal Abduction 5 Normal Adduction 3- Fair- Comments Pain in LB with MMT Left Flexion (L2) 5 Normal Extension (S1) 5 Normal Abduction 5 Normal Adduction 3- Fair- Comments Pain in LB with MMT Knee Strength Knee Manual Muscle Testing Right Reason Not Measured WFL Left Reason Not Measured WFL Ankle/Foot Strength Ankle and Foot Manual Muscle Testing Right Reason Not Measured WFL Left Reason Not Measured WFL PT-OP-Q Treatments Start: 02/02/19 08:11 Freq: Status: Active Protocol: Document 02/08/19 13:32 LRN (Rec: 02/08/19 14:20 LRN [id number]) Therapeutic Exercises Supine Exercises TA contraction Supine Exercise Name TA contraction Reps/Minutes 10 hold, 10x Fig 4 stretch Supine Exercise Name Hip ER stretch f/b active hip ER Side right Reps/Minutes 3' Hip PROM Supine Exercise Name Hip PROM Side bilateral Comments ROM taken Sidelying Exercises Hip AB Sidelying Exercise Name Hip AB Side bilateral Reps/Minutes 10x3 Clamshell Sidelying Exercise Name Clamshell Side bilateral Reps/Minutes 10x3 Standing Exercises QL Standing Exercise Name Hip Hike Side bilateral Reps/Minutes 10x 2 Therapeutic Activity Therapeutic Activity Body Mechanics training Name Bending and reaching for dogs, and lifting dog off floor. Reps/Minutes 8' Self-Care/Home Management Treatment Education Patient Education Posture Other Education Neutral spine position training in sitting. Activities Self-Care/Home Management Activities Issued & Reviewed HEP: Fig 4 stretch PT-OP-T Assessment and Plan Start: 02/02/19 08:11 Freq: Status: Active Protocol: Document 02/08/19 13:32 LRN (Rec: 02/08/19 14:20 LRN [id number]) Physical Therapy Assessment Goals Three Impairment Poor posturing in low back Blood Bank Supervisor Goal (LTG) Pt will demonstrate knowledge of proper low back positioning by adjusting as tolerated into sacral flex & lumbar ext. LTG Duration 05/03/19 (02/08/19: GOAL MET) Two Impairment Lacks appropriate body mechanics Short Term Goal (STG) Pt will be educated in proper body mechanics for transfers, lifting, house cleaning, etc.. . STG Duration 02/09/19 (02/05/19: GOAL MET) One Impairment Lacks appropriate HEP Blood Bank Supervisor Goal (LTG) Pt will be independent with a self care HEP. LTG Duration 05/03/19 (02/08/19: GOAL MET ) Assessment Summary Assessment R hip ER is tight, otherwise hip mobility is fairly symmetrical. KATIE is 19. Pt has good recall of previously given ex's. Per pt report her back pain is at prior level and she feels ready to continue with her HEP. Physical Therapy Plan Frequency and Duration Frequency of Treatment 2x/Week Plan of Care Start Date 02/02/19 Plan of Care End Date 05/03/19 Discharge Physical Therapy Discharge Reasons Goals Met Discharge Comments Pt feels goals were met and is ready to continue on an independent HEP. Thank you for your referral.
== END 2019-02-20 08:31 | disposition home or self-care (01) ==
LOC: PHYS 13:30
PROVIDERS: PCP Family Medicine; Visit Provider Family Medicine
DX: M48.02 Spinal stenosis, cervical region (principal); M81.0 Age-related osteoporosis without current pathological fracture; M54.5 Low back pain
CPT/HCPCS: 97110; 97161; 97530; 97535

== ENCOUNTER → 2019-09-04 16:20 | Outpatient (CLI) | payer MEDICARE, SELFPAY ==
[2019-09-04 17:17] LABS: Cholesterol 178 mg/dL (140-199); HDL Cholesterol 47 mg/dL (40-60); LDL Cholesterol Calculated 107 mg/dL (<100); Triglycerides 118 mg/dL (35-150)
[2019-09-04 17:39] LABS: TSH w/ Reflex to FT4 0.72 uIU/mL (0.47-4.68)
== END ==
PROVIDERS: PCP Family Medicine; Referring Provider Family Medicine; Visit Provider Family Medicine
DX: Z13.6 Encounter for screening for cardiovascular disorders (principal); E78.5 Hyperlipidemia, unspecified
CPT/HCPCS: 36415; 80061; 84443

== ENCOUNTER → 2019-11-15 11:18 | Outpatient (CLI) | payer MEDICARE, SELFPAY ==
--- NOTE | 2019-11-15 11:20 | DI.RAD.S_ITS ---
PROCEDURE: XR RIBS RT MIN 3V W CXR 1V INDICATIONS: r rib pain TECHNIQUE: Two views of the right ribs were acquired, along with a single view chest. COMPARISON: [facility], CT, PE STUDY (CTA CHEST), 11/09/2015, 15:33. [facility], CR, CHEST 2 VIEW, 11/09/2015, 17:01. FINDINGS: Surgical changes and devices: Right reverse total shoulder arthroplasty is redemonstrated.. Bones and chest wall: No acute displaced fractures or dislocations. No suspicious bony lesions. Overlying soft tissues appear unremarkable. There is mild generalized osteopenia. Degenerative changes are seen in the spine and acromioclavicular joints. Lungs and pleura: No pleural effusions or pneumothorax. The lungs are mildly hyperexpanded with chronic interstitial markings. The previously lesion on CT from 11/09/2015 is not definitely visualized with radiographs. Mediastinum: Mediastinal contours appear normal. Heart size is normal. IMPRESSION: No acute displaced rib fracture. No pleural effusion or pneumothorax. Dictated by: Levi Mars M.D. on 11/15/2019 at 11:58 Approved by: Levi Mars M.D. on 11/15/2019 at 12:04
== END ==
PROVIDERS: PCP Family Medicine; Referring Provider Physician Assistant; Visit Provider Physician Assistant
DX: R07.81 Pleurodynia (principal)
CPT/HCPCS: 71101

== ENCOUNTER → 2020-04-03 11:10 | Outpatient (CLI) | payer MEDICARE, SELFPAY ==
[2020-04-03 11:54] LABS: Add Manual Diff / Slide Review NO; Basophils Absolute Auto 0 /uL (0-100); Basophils Percent Auto 0.5 % (0-2); Eosinophils Absolute Auto 200 /uL (0-450); Eosinophils Percent Auto 3.1 % (2-4); Hematocrit 34.8 % (36-46); Hemoglobin 11.8 g/dL (12.0-16.0); Lymphocytes Absolute Auto 800 /uL (1100-4500); Lymphocytes Percent Auto 12.9 % (25-40); Mean Corpuscular HGB Conc 33.9 % (30-36); Mean Corpuscular Hemoglobin 31.7 PG (26-34); Mean Corpuscular Volume 93.5 fL (80-100); Monocytes Absolute Auto 800 /uL (0-900); Monocytes Percent Auto 12.6 % (3-14); Neutrophils Absolute Auto 4300 /uL (1500-7000); Neutrophils Percent Auto 70.9 % (50-75); Platelet Count 239 X10^3/uL (150-400); Red Blood Cell Count 3.72 X10^6/uL (4.0-5.2); White Blood Cell Count 6.1 X10^3/uL (4.5-11.0)
[2020-04-03 12:07] LABS: BUN Creatinine Ratio 24.6 (6-22); Blood Urea Nitrogen 16 mg/dL (7-17); Calcium 8.9 mg/dL (8.4-10.2); Carbon Dioxide 28 mmol/L (22-32); Chloride 104 mmol/L (98-107); Estimated Glomerular Filt Rate > 60.0 mL/min (>60); Glucose 104 mg/dL (80-110); HEMOLYSIS < 15 (0-50); Sodium 134 mmol/L (137-145)
[2020-04-03 12:16] LABS: NT-proBNP (BNP-Adult 18+) 104 pg/mL (<450)
== END ==
PROVIDERS: PCP Family Medicine; Referring Provider Family Medicine; Visit Provider Family Medicine
DX: D47.2 Monoclonal gammopathy (principal); R63.4 Abnormal weight loss
CPT/HCPCS: 36415; 80048; 83880; 85025

== ENCOUNTER → 2020-04-08 10:24 | Outpatient (CLI) | payer MEDICARE, SELFPAY ==
--- NOTE | 2020-04-08 11:24 | DI.CT.S_ITS ---
PROCEDURE: CT CHEST ABD PEL W CON INDICATIONS: wieght loss, sob and hx of MGUS TECHNIQUE: After the administration of oral and intravenous contrast, 5 mm thick sections acquired from the lung apices to the symphysis. 5 mm coronal and sagittal reformats were performed, with additional 7 mm coronal MIP reformats through the lungs. For radiation dose reduction, the following was used: automated exposure control, adjustment of mA and/or kV according to patient size. COMPARISON: [facility], CT, PE STUDY (CTA CHEST), 11/09/2015, 15:33. [facility], CR, XR RIBS RT MIN 3V W CXR 1V, 11/15/2019, 11:25. FINDINGS: Image quality: Excellent. CHEST: Lungs and pleura: 3.9 x 4.1 x 3.6 cm solid mass with mildly spiculated margin is seen in posterior aspect of left lower lobe superior segment. 1.6 x 1.3 centimeter masslike consolidation with peripheral ground-glass opacity in posterior aspect of right upper lobe with surrounding atelectatic changes is again seen, previously measured up to 1.7 cm in maximal dimension series 3, image 183. Dependent atelectasis in posterior aspect of bilateral lower lobes are seen. Moderate centrilobular emphysema is noted more prominent in bilateral upper lobes. Biapical scarring is seen. No pleural effusions or pneumothorax. Central and peripheral airways appear patent and normal in caliber. Mediastinum: Heart size is normal. No pericardial effusion. Mild soft tissue fullness in mediastinum and bilateral hilar region are seen measures up to 9 millimeters in short axis diameter. Moderate atherosclerotic calcifications are noted in coronary vessels and thoracic aorta. Thoracic aorta and central pulmonary arteries are normal in size. Esophagus is normal in caliber. No hiatal hernia. Chest wall: No axillary or supraclavicular adenopathy by size criteria. Subcentimeter lymph nodes are seen scattered in bilateral axilla measures up to 6 millimeters in short axis diameter. Thyroid gland is within normal limits. ABDOMEN: Solid organs: Liver is normal in size and enhancement. Gallbladder is within normal limits. Biliary system is non dilated. Pancreas enhances normally. Spleen is normal in size and enhancement. No adrenal nodules. Kidneys demonstrate normal size and enhancement, without hydronephrosis. Bilateral renal cysts are seen measures up to 2.3 x 2.3 cm in size in midpole of left kidney. Peritoneum and bowel: There is no evidence of bowel obstruction. No gross abnormal bowel wall thickening or mesenteric fat stranding is seen. No free fluid or free air is noted. Nodes and vessels: 2.1 x 2.9 centimeters soft tissue density in right lower quadrant just posterior to right rectus abdominus muscle series 2, image 92 . This could represent enlarged right mesenteric lymph no versus neoplastic process in this area. No retroperitoneal lymphadenopathy by size criteria. Ectasias of infrarenal abdominal aorta is seen measures up to 2.4 cm in largest AP diameter just proximal to bifurcation. Moderate atherosclerotic calcifications are noted throughout abdominal aorta. IVC is normal in size. Miscellaneous: No ventral hernias. PELVIS: Genitourinary: Mild diffuse bladder wall thickening is seen, no discrete bladder wall mass. Miscellaneous: No inguinal hernias or adenopathy. Bones: Old healed fracture involving left superior and inferior pubic rami are seen. Patient is status post right shoulder reverse arthroplasty with beam hardening artifacts. No suspicious bony lesions. No vertebral body compression fractures. Grade 1 anterolisthesis of L4 on L5 is seen. Degenerative endplate changes throughout lower thoracic spine and lumbar spine is seen. IMPRESSION: 1. 3.9 x 4.1 x 3.6 centimeters spiculated soft tissue mass involving posterior aspect of left lower lobe as described above highly concerning for primary pulmonary malignancy. 2. Essentially stable appearing ileal airspace disease in posterior right lower lobe since 2016 study and is more suggestive of benign process in this region. 3. Moderate to advanced centrilobular emphysema. No pleural effusion or pneumothorax. Airway is patent. 4. Subcentimeter lymph nodes seen in mediastinum and bilateral hilar region. 5. 2.1 x 2.9 cm soft tissue density lesion in right lower quadrant peritoneal space just posterior to right rectus abdominus muscle. This could represent enlarged mesenteric lymph node versus mesenteric malignant process. 6. No evidence of bowel obstruction. No gross abnormal bowel wall thickening. No free fluid or free air. 7. Ectasia of infrarenal abdominal aorta measures up to 2.4 cm in largest AP diameter. Dictated by: Henry Nelson M.D. on 04/08/2020 at 12:28 Approved by: Henry Nelson M.D. on 04/08/2020 at 14:34
== END ==
PROVIDERS: PCP Family Medicine; Referring Provider Family Medicine; Visit Provider Family Medicine
DX: D47.2 Monoclonal gammopathy (principal); R63.4 Abnormal weight loss; R06.02 Shortness of breath; R91.8 Other nonspecific abnormal finding of lung field; J43.2 Centrilobular emphysema; R59.0 Localized enlarged lymph nodes; R19.03 Right lower quadrant abdominal swelling, mass and lump; I77.811 Abdominal aortic ectasia
CPT/HCPCS: 71260; 74177; Q9967

== ENCOUNTER → 2020-04-26 14:23 | Outpatient (CLI) | payer MEDICARE, SELFPAY ==
[2020-04-26 16:31] LABS: COVID19 -Nasal RAPID Negative (Negative)
--- NOTE | 2020-04-28 | PATH_ITS ---
[facility] Accession Number: [id number] . 01 Material submitted: . lung - LEFT LUNG MASS . 01 Clinical history: . LEFT LUNG MASS (LLL), NEEDLE CORE BIOPSY X6 . 02 Diagnosis: Left Lung, Mass, Core Needle Biopsies: Non-small cell carcinoma, favor squamous cell carcinoma. Please see comment. MRV 05/01/2020 1316 Local . 02 Comment: As part of routine air quality specialist, Dr. Bhandari also reviewed this case and agrees with the diagnosis. Dr. Prado gave preliminary results to Dr. Maradiaga on 05/01/2020. . PD-L1 studies will be requested and the results reported as an addendum. . 02 Electronically signed: . Yoli Prado MD, Pathologist NPI- [id number] . 01 Gross description: . LEFT LUNG MASS: Received in formalin are multiple fragment(s) of méndez, soft tissue measuring 0.1 x 0.1 x 0.1 cm to 0.4 x 0.1 x 0.1 cm submitted entirely in 1 cassette(s) /GUCCI 04/29/20201958 Local . 02 Microscopic: . Immunohistochemical stains were performed to characterize cells of interest. All control stains showed appropriate reactivity. . RESULTS: REED: Positive. P63: Positive. CK5/6: Positive. CK7: Positive. CK20: Negative. TTF1: Negative. Napsin A: Negative. . INTERPRETATION: The immunophenotype is compatible with a squamous cell carcinoma. . * This test was developed and its performance characteristics determined by [facility]. It has not been cleared or approved by the U.S. Food and Drug Administration. The FDA has determined that such clearance or approval is not necessary. This test is used for clinical purposes. It should not be regarded as investigational or for research. . 02 Pathologist provided ICD-10: C34.92 . 02 CPT . 414845, L91486, L84550 Performed at: 01 [facility] [address] [id number] MD [place] MD Phone: [phone] Performed at: [id number] [place], [place] [id number] MD Yoli Prado MD Phone: [phone]
== END ==
PROVIDERS: PCP Family Medicine; Visit Provider Student in an Organized Health Care Education/Training Program
DX: Z01.812 Encounter for preprocedural laboratory examination (principal); Z20.822 Contact with and (suspected) exposure to COVID-19
CPT/HCPCS: 87635; C9803

== ENCOUNTER 2020-04-28 08:22 | Outpatient (CLI) | payer MEDICARE, SELFPAY ==
[2020-04-28] VITALS (19 sets, daily range): BP systolic 95–148; BP diastolic 59–76; PULSE 67–90; RESP 12–20; TEMP 36.2–37.6; O2SAT 92–100; BMI 20.5
--- NOTE | 2020-04-28 | DI.CT.S_ITS ---
PROCEDURE: CT BIOPSY LUNG LT Sedation analgesia for approximately 15 minutes. INDICATIONS: Mass left lower lung TECHNIQUE: The indications, alternatives, benefits, risks, and possible complications of the procedure were communicated to the patient. Informed written consent from the patient was obtained and placed in the chart. Continuous EKG and hemodynamic monitoring was started by trained personnel. The patient was brought to the CT suite and programming director spiral CT imaging was performed with localization grid. The appropriate site for percutaneous access to the biopsy target was marked, was prepped and draped sterilely, and was infused with local anaesthesia. Under CT guidance, a core biopsy trocar and needle set was advanced to the biopsy target, and specimen(s) were obtained. The trocar and needle were then removed, and the patient was sent for post-procedure monitoring. COMPARISON: None. FINDINGS: Biopsy site: Left lower lobe mass Needle: 20 gauge biopsy needle with introducer trocar. Number of passes: 6 Medications: 1% lidocaine for local anaesthesia. IV Fentanyl and Versed for conscious sedation for approximately 15 minutes (see nursing record). Complications: Trace adjacent pneumothorax is noted. Surveillance chest radiographs are pending. IMPRESSION: Successful CT-guided biopsy of left lower lobe mass. Dictated by: Pacheco Mendoza M.D. on 04/28/2020 at 11:20 Approved by: Pacheco Mendoza M.D. on 04/28/2020 at 11:22
[2020-04-28 08:55] LABS: INR 1.1 (0.9-1.3); Prothrombin Time 12.9 SECONDS (10.1-12.7)
[2020-04-28] MEDS: MIDAZOLAM 5 MG/ML VIAL IV (09:53)
[2020-04-28] MEDS: fentaNYL 100 MCG/2 ML INJ 50 MCG IV (10:03)
--- NOTE | 2020-04-28 10:51 | SUR.PHASEII ---
Pt recovering from procedure. Oxygen sats staying above 94% on room air. Breath sounds clear bilaterally. Wound to left back dry and intact with bandaid covering.
--- NOTE | 2020-04-28 11:31 | DI.RAD.S_ITS ---
PROCEDURE: XR CHEST 1V INDICATIONS: POST LUNG BIOPSY TECHNIQUE: One view of the chest was acquired. COMPARISON: [facility], CT, CT BIOPSY LUNG LT, 04/28/2020, 9:09. [facility], CR, CHEST 2 VIEW, 11/09/2015, 17:01. FINDINGS: Surgical changes and devices: Right shoulder arthroplasty. Lungs and pleura: Redemonstrated left lower lobe mass. No pneumothorax. The trace pneumothorax adjacent to the biopsy left lower lobe mass seen on the prior CT is not radiographically visible. No pleural effusion Mediastinum: Mediastinal contours appear normal. Heart size is normal. Bones and chest wall: No suspicious bony lesions. Overlying soft tissues appear unremarkable. IMPRESSION: No radiographically visible pneumothorax. Dictated by: Pacheco Mendoza M.D. on 04/28/2020 at 11:59 Approved by: Pacheco Mendoza M.D. on 04/28/2020 at 12:01
--- NOTE | 2020-04-28 11:45 | SUR.PHASEII ---
Patient resting quietly with eyes closed and appears in no distress. RR even and unlabored. Oxygen saturation remains between 92% and 94% at rest and increases to 96% with deep breathing. Patient denies SOB. PCXR completed. VSS.
--- NOTE | 2020-04-28 12:30 | DI.RAD.S_ITS ---
PROCEDURE: XR CHEST 1V INDICATIONS: POST LUNG BIOPSY TECHNIQUE: One view of the chest was acquired. COMPARISON: [facility], CT, CT BIOPSY LUNG LT, 04/28/2020, 9:09. [facility], CT, CT CHEST ABD PEL W CON, 04/08/2020, 11:09. [facility], CR, XR CHEST 1V, 04/28/2020, 11:34. FINDINGS: Surgical changes and devices: Right shoulder arthroplasty. Lungs and pleura: Left lung mass again noted. No pleural effusions or radiographically visible pneumothorax. Mediastinum: Mediastinal contours appear normal. Heart size is normal. Bones and chest wall: No suspicious bony lesions. Overlying soft tissues appear unremarkable. IMPRESSION: No radiographically visible pneumothorax identified. Dictated by: Pacheco Mendoza M.D. on 04/28/2020 at 12:40 Approved by: Pacheco Mendoza M.D. on 04/28/2020 at 12:42
--- NOTE | 2020-04-28 12:50 | SUR.PHASEII ---
All discharge instructions reviewed with patient and daughter. V/U. Bandaid to left lateral side remains clean, dry and intact. Patient denies pain or SOB at this time. Instructed patient and family to return to [facility] if any increase in SOB occurs outside of patient's baseline. V/U. VSS. Home with daughter in stable condition.
== END 2020-04-28 13:00 | disposition home or self-care (01) ==
LOC: CT 08:25
PROVIDERS: PCP Family Medicine; Referring Provider Internal Medicine Hematology & Oncology; Visit Provider Family Medicine
PROC: BB24ZZZ Computerized Tomography (CT Scan) of Bilateral Lungs (ICD-10-PCS; CPT 32408; principal; 2020-04-28 09:30)
DX: C34.32 Malignant neoplasm of lower lobe, left bronchus or lung (principal); Z51.81 Encounter for therapeutic drug level monitoring; Z98.890 Other specified postprocedural states; Z79.01 Long term (current) use of anticoagulants
CPT/HCPCS: 32408; 36415; 71045; 77012; 85610; J2250; J3010

== ENCOUNTER → 2020-05-21 08:59 | Outpatient (CLI) | payer MEDICARE, SELFPAY ==
[2020-05-21 09:41] LABS: COVID19 -Nasal RAPID Negative (Negative)
== END ==
PROVIDERS: PCP Family Medicine; Referring Provider Internal Medicine; Visit Provider Internal Medicine
DX: Z01.812 Encounter for preprocedural laboratory examination (principal); Z20.822 Contact with and (suspected) exposure to COVID-19
CPT/HCPCS: 87635; C9803

== ENCOUNTER → 2020-06-16 13:42 | Outpatient (CLI) | payer MEDICARE, SELFPAY ==
--- NOTE | 2020-06-07 10:49 | P.PFT.S_ITS ---
Pulmonary Function Test Referral & Results Date Patient Seen: 05/21/20 Requesting provider: Adnre Maradiaga Indication: Lung cancer Results: The spirometry demonstrates an FVC of 2.45 L which is 110% of predicted. The FEV1 was measured at 1.83 L which is 112% of predicted. The FEV1/FVC ratio was 75 which is 102% of predicted. Following the administration of bronchodilator there was no appreciable change. Lung volumes show an SVC of 2.74 L which is 114% of predicted. The diffusing capacity was measured at 11.89 which is 55% of predicted. The maximum voluntary ventilation was reduced Interpretation: This study demonstrates normal spirometry but significantly reduced diffusing capacity suggesting element of disease at the capillary alveolar level. In addition patient's maximum voluntary ventilation is notably reduced which suggest perhaps some element of neuromuscular disease given the normal spirometry. Clinical correlation suggested
== END ==
PROVIDERS: PCP Family Medicine; Referring Provider Family Medicine; Visit Provider Family Medicine
DX: C34.90 Malignant neoplasm of unspecified part of unspecified bronchus or lung (principal); J98.8 Other specified respiratory disorders; Z87.891 Personal history of nicotine dependence; Z20.822 Contact with and (suspected) exposure to COVID-19
CPT/HCPCS: 87635; 94060; 94726; 94729; C9803

== ENCOUNTER → 2020-06-30 07:11 | Outpatient (CLI) | payer MEDICARE, SELFPAY ==
--- NOTE | 2020-06-30 07:14 | DI.MRI.S_ITS ---
PROCEDURE: MR HEAD/BRAIN WO/W CON INDICATIONS: left lower lobe lung SCC TECHNIQUE: Noncontrast axial T1 spin echo, axial T2 fast spin echo, sagittal and axial FLAIR, coronal T2 fast spin echo, axial gradient echo, axial diffusion and ADC through the brain. After the administration of contrast, axial and coronal T1 spin echo with fat saturation through the brain. COMPARISON: None. FINDINGS: Image quality: Excellent. CSF spaces: Basal cisterns are patent. No extra-axial fluid collections. Ventricles are normal in size and shape. Brain: No midline shift. No intracranial bleeds or masses. Minimal punctate enhancement involving the right thalamus, image 99/17 which is indeterminate There is cerebral volume loss for age. There is periventricular white matter chronic small vessel ischemic change. The brainstem appears normal. Diffusion-weighted images demonstrate no acute ischemic insults. No chronic ischemic insults. Normal intravascular flow voids are present. Skull and face: Calvarial marrow is normal in signal. Orbits appear normal. Sinuses: The mastoid air cells appear clear. There is moderate left maxillary sinus disease. IMPRESSION: Minimal punctate enhancement involving the right thalamus, too small to characterize accurately and indeterminate. Recommend attention to this area on follow-up studies given the absence of any relevant prior comparison examinations. Diffuse small white matter changes, probably represent chronic microvascular ischemic disease, versus statistically less likely demyelination or other infectious, inflammatory, neurodegenerative etiology, technically nonspecific. Dictated by: Pacheco Mendoza M.D. on 06/30/2020 at 10:32 Approved by: Pacheco Mendoza M.D. on 06/30/2020 at 10:37
== END ==
PROVIDERS: PCP Family Medicine; Referring Provider Internal Medicine Hematology & Oncology; Visit Provider Internal Medicine Hematology & Oncology
DX: Z01.812 Encounter for preprocedural laboratory examination (principal); Z20.822 Contact with and (suspected) exposure to COVID-19; C34.32 Malignant neoplasm of lower lobe, left bronchus or lung; J32.0 Chronic maxillary sinusitis
CPT/HCPCS: 70553; 87635; C9803

== ENCOUNTER → 2020-06-30 09:11 | Outpatient (CLI) | payer MEDICARE, SELFPAY ==
[2020-06-30 12:10] LABS: COVID19 -Nasal RAPID Negative (Negative)
== END ==
PROVIDERS: PCP Family Medicine; Visit Provider Surgery
DX: Z20.822 Contact with and (suspected) exposure to COVID-19 (principal)
CPT/HCPCS: 87635

== ENCOUNTER 2020-07-01 12:31 | Day surgery (SDC) | payer MEDICARE, SELFPAY ==
[2020-06-27 10:14] VITALS: BMI 20.5
[2020-07-01] VITALS (8 sets, daily range): BP systolic 129–169; BP diastolic 68–86; PULSE 80–84; RESP 12–24; TEMP 36.2–38; O2SAT 92–94; BMI 20.5
--- NOTE | 2020-07-01 | DI.RAD.S_ITS ---
PROCEDURE: XR CHEST 1V INDICATIONS: RT PORTACATH TECHNIQUE: One view of the chest was acquired. COMPARISON: [facility], CR, XR CHEST 1V, 04/28/2020, 12:30. [facility], CR, XR CHEST 1V, 04/28/2020, 11:34. FINDINGS: Surgical changes and devices: Port-A-Cath from right-sided approach appears normal.. Lungs and pleura: Lungs are abnormal on the left with significant interval enlargement in the lung mass at and below the level of the middle 3rd of the left hilum. This mass was most recently visualized after biopsy 04/28/20 and has enlarged from approximately 4.6 cm in maximal dimension to now 6.0 x 7.9 cm. . No pleural effusions or pneumothorax. Mediastinum: Mediastinal contours appear normal. Heart size is normal. Bones and chest wall: No suspicious bony lesions. Overlying soft tissues appear unremarkable. IMPRESSION: Significant short-term interval enlargement of a left lung mass which was biopsied 04/28/20. Note is made of a Port-A-Cath from right-sided approach extending into the distal SVC. Dictated by: Karson Collazo M.D. on 07/01/2020 at 16:47 Approved by: Karson Collazo M.D. on 07/01/2020 at 16:48
--- NOTE | 2020-07-01 14:12 | PM.HP.1 ---
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 She has never had a prior indwelling venous catheter. She takes warfarin routinely but has not had any for the last 5 days. Patient History Medical History Acne Ankle pain (~1999) Cervical spine disease (~2012) Chicken pox Depression (~1998) Measles MGUS (monoclonal gammopathy of unknown significance) Mumps Osteoarthritis (~1999) Osteoporosis (~1998) Rubella Shoulder pain (~1984) Surgical History Anesthesia History of ankle surgery (~2006) S/P total abdominal hysterectomy and bilateral salpingo-oophorectomy Status post rotator cuff repair (~2004) Family & Social History Family History Father Disorder of electrolytes Mother Mental health problem Grandfather Cancer Grandmother Diabetes mellitus Social History: household members family,none Tobacco & Substance use: Smoking Status Former smoker alcohol intake current alcohol intake frequency 0-2 drinks per day Substance Use Type does not use Meds Home Medications and Allergies Home Medications Medication Instructions Recorded Confirmed Type multivitamin 1 tab PO DAILY #0 05/30/12 06/27/20 History warfarin 5 mg tablet 7.5 mg PO QPM #135 tab 04/29/20 07/01/20 Rx DISABLED PARKING PERMIT #1 ea 05/05/20 06/18/20 Rx tramadol 50 mg tablet 50 mg PO Q8H PRN #28 tab 06/04/20 06/27/20 Rx citalopram 20 mg tablet 40 mg PO QPM #180 tab 06/26/20 07/01/20 Rx hydrocodone 5 mg-acetaminophen 325 See Rx Instructions .ROUTE 06/26/20 07/01/20 Rx mg tablet .COMPLEX #30 tab Allergies Allergy/AdvReac Type Severity Reaction Status Date / Time No Known Drug Allergies Allergy Verified 06/18/20 13:45 Review of Systems Review of Systems ROS: Yes All systems reviewed with the patient and are negative except as otherwise documented Exam Vital Signs (past 8 hours): - 07/01/20 13:18 Temperature 100.4 F H Pulse Rate 81 Respiratory Rate 24 Blood Pressure 162/81 H Pulse Oximetry 94 Oxygen Delivery Method Room Air Narrative Exam Narrative: GENERAL-thin elderly woman, no acute distress HEENT-no scleral icterus, hearing intact NECK-no JVD, trachea midline CVS- regular rate, no peripheral edema RESP-unlabored respiratory effort, no audible wheezing GI-soft, nontender nondistended MSK-no cyanosis or clubbing, extremities without deformity SKIN-warm, dry NEURO-alert and oriented, no focal deficits PYSCH-Appropriate mood and affect Assessment & Plan Assessment & Plan narrative: 84-year-old woman with 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 Technical details of the procedure were discussed with the patient. Operative risks including bleeding, infection, mechanical device failure, embolism were discussed with the patient. Her questions have been answered and she is in agreement with this plan.
[2020-07-01] MEDS: CEFAZOLIN 2 GM/100 ML FROZ.PIGGY IV (14:15)
--- NOTE | 2020-07-01 14:32 | SUR.OPER ---
Supine on padded OR bed, head on gel doughnut, arms secured on padded arm boards at <90 degrees abduction, legs uncrossed, safety belt at thigh, tape over blanket over lower legs.
[2020-07-01] MEDS: HEPARIN 5,000 UNIT, SODIUM CHLORIDE 0.9% 50 ML IV (14:37)
[2020-07-01] MEDS: BUPIVACAINE 0.25% (PF) VIAL 30 ML INJ (14:37)
--- NOTE | 2020-07-01 18:50 | PM.OP.1 ---
Operative Date/Time/Diagnoses Date of procedure: 07/01/20 Time of procedure: 18:50 Pre-op diagnosis: Left lung cancer Post-op diagnosis: same Procedure & Clinicians Procedure: Port-A-Cath placement Same procedure as scheduled: Yes Indications: Lung cancer Surgeon: Tarun Alford Click Yes if Unassisted: Yes Anesthesia Type: General Operative Notes Findings: Tip of the catheter lies within the SVC, no pneumothorax Estimated Blood Loss (mL): 20 Procedure in detail: Patient was brought to the operating room placed supine on table. Bilateral lower extremity compressive devices were applied. General anesthesia was induced and she was intubated with an LMA. she was then prepped and draped in usual sterile fashion. Time-out was performed ensure the correct patient procedure necessary equipment within the operating room. She received 2 g of Ancef prior to incision. Under ultrasound guidance the right internal jugular vein was accessed under direct visualization. The guidewire was then threaded through the needle. Fluoroscopy demonstrated that the guidewire was coiled within the jugular vein. The guidewire was backed out to reduce the coil but this was unsuccessful. Next vascular access was attempted through the right subclavian. The subclavian vessel was entered with the finder needle. Dark venous appearing blood with no pulsation was demonstrated. Fluoroscopy demonstrated that the guidewire was within the subclavian vessel projecting towards the heart. The vessel was then carefully dilated and at this point there was pulsatile blood suggesting entry into the subclavian artery. Manual pressure was held for 10 minutes. There was no evidence of ongoing bleeding. The right internal jugular vein was then reaccess to under ultrasound guidance. At this time the guidewire passed smoothly into the SVC and without coiling or kinking as confirmed on fluoroscopy. The internal jugular vein was then dilated. The catheter was then inserted through the sheath. Placement was again confirmed with fluoroscopy. A subcutaneous pocket was made in the right chest wall. The tunneler device was used to move the catheter from the neck to the chest pocket. The port was attached after it was primed with heparined saline. The port was tested to ensure that it flushed easily and had good blood return. The port was then secured to the underlying fascia using interupted 0 Prolene suture. Hemostasis was achieved. The wound was irrigated with sterile saline. The subcutaneous tissues were reapproximated with the 3 0 Vicryl and then skin closed with 4-0 Monocryl. The skin was sealed with Dermabond. Patient tolerated procedure well. The sponge and instrument count at the end operation was correct. Patient emerged from general anesthesia was extubated and taken to the postoperative care unit in stable condition Post-operative Condition: stable Disposition: same day surgery
== END 2020-07-01 16:00 | disposition home or self-care (01) ==
PROVIDERS: PCP Family Medicine; Referring Provider Surgery; Visit Provider Surgery
PROC: (CPT 36561; principal; 2020-07-01 13:45)
DX: C34.90 Malignant neoplasm of unspecified part of unspecified bronchus or lung (principal); J44.9 Chronic obstructive pulmonary disease, unspecified; Z87.891 Personal history of nicotine dependence; Z86.718 Personal history of other venous thrombosis and embolism; Z79.01 Long term (current) use of anticoagulants
CPT/HCPCS: 36561; 71045; 76000; 82962; 85610; C1788; J0690; J1644; J2704; J3010